=== PATIENT | male | born 1960 | race Caucasian/White ===

== ENCOUNTER 2020-10-11 15:00 | Emergency (ER) | payer BC ==
[~2020-10-11] VITALS: Ht 167.6 cm; Wt 59.9 kg
== END 2020-10-11 21:38 | disposition short-term general hospital (02) ==
LOC: ER 16:12
DX: S92.001A Unspecified fracture of right calcaneus, initial encounter for closed fracture (principal); S22.059A Unspecified fracture of T5-T6 vertebra, initial encounter for closed fracture; S12.600A Unspecified displaced fracture of seventh cervical vertebra, initial encounter for closed fracture; S22.019A Unspecified fracture of first thoracic vertebra, initial encounter for closed fracture; W11.XXXA Fall on and from ladder, initial encounter
CPT/HCPCS: 72125; 72128; 72131; 72170; 99284

== ENCOUNTER 2023-06-14 18:44 | Emergency (ER) | payer BC ==
[~2023-06-14] VITALS: Ht 167.6 cm; Wt 59.9 kg
[2023-06-14] MEDS ORDERED: PREDNISONE20 MG PO (19:12)
[2023-06-14] MEDS ORDERED: ACYCLOVIR800 MG PO (19:12)
[2023-06-14 19:20] LABS: BASOPHILS # (AUTO) 0.1 (0.0-0.1); BASOPHILS % 0.4 % (0.0-1.0); EOSINOPHILS # (AUTO) 0.2 (0.0-0.4); EOSINOPHILS % 1.8 % (0.0-6.0); HEMATOCRIT 37.5 % (38.2-49.6); HEMOGLOBIN 13.4 g/dL (14.0-18.0); LYMPHOCYTES # (AUTO) 5.2 (1.0-3.2); LYMPHOCYTES % 45.2 % (18.0-39.1); MEAN CORPUSCULAR HEMOGLOBIN 33.8 pg (28-32); MEAN CORPUSCULAR HGB CONC 35.7 g/dL (31-35); MEAN CORPUSCULAR VOLUME 94.7 fL (81-99); MONOCYTES # (AUTO) 1.2 (0.2-0.8); MONOCYTES % 10.5 % (4.4-11.3); NEUTROPHILS # (AUTO) 4.8 (2.1-6.9); NEUTROPHILS % 41.8 % (38.7-80.0); PLATELET COUNT 213 x10e3/uL (140-360); RED BLOOD COUNT 3.96 x10e6/uL (4.3-5.7); RED CELL DISTRIBUTION WIDTH 12.4 % (11.7-14.4)
[2023-06-14 19:46] LABS: ALANINE AMINOTRANSFERASE 10 IU/L (0-55); ALBUMIN 4.1 g/dL (3.5-5.0); ALBUMIN/GLOBULIN RATIO 1.3 (0.8-2.0); ALKALINE PHOSPHATASE 49 IU/L (40-150); ANION GAP 14.5 mmol/L (8-16); BILIRUBIN,TOTAL 0.4 mg/dL (0.2-1.2); BLOOD UREA NITROGEN 9 mg/dL (7-26); BUN/CREATININE RATIO 11 (6-25); CALCIUM 9.9 mg/dL (8.4-10.2); CARBON DIOXIDE 23 mmol/L (22-29); CHLORIDE 103 mmol/L (98-107); CREATINE KINASE 119 IU/L (30-200); CREATININE, SERUM 0.81 mg/dL (0.72-1.25); EST GLOMERULAR FILTRATION RATE 100 ML/MIN (>=60); GLUCOSE 81 mg/dL (74-118); POTASSIUM 4.5 mmol/L (3.5-5.1); SODIUM 136 mmol/L (136-145); TOTAL PROTEIN 7.2 g/dL (6.5-8.1)
[2023-06-14 19:50] LABS: ETHANOL < 10.0 mg/dL (0.0-10.0); LIPASE 38 U/L (8-78)
[2023-06-14 19:55] LABS: TROPONIN I < 0.001 ng/mL (0-0.300)
[2023-06-14] MEDS ORDERED: IOPAMIDOL 370 MG/ML 100 ML INFUS..BTL INJ ONE (20:07)
[2023-06-14 21:52] VITALS: BP 148/83; PULSE 58; RESP 17; TEMP 97.5; O2SAT 100
== END 2023-06-14 21:45 | disposition home or self-care (01) ==
LOC: ER 19:18
DX: R20.0 Anesthesia of skin (principal); G51.0 Bell's palsy; R94.31 Abnormal electrocardiogram [ECG] [EKG]
CPT/HCPCS: 36415; 70496; 70498; 80053; 80320; 82550; 83690; 83880; 84484; 85025; 93005; 99283; Q9967